=== PATIENT | female | born 1955 | race Caucasian/White ===

== ENCOUNTER → 2016-12-15 | Outpatient (CLI) | payer SELFPAY ==
[2015-01-23 22:51] VITALS: BP 156/98
[~2016-12-15] MED LIST: NS 100 ML IV 100 ML IV ONE
--- NOTE | 2016-12-18 09:55 | CT ---
HISTORY: Right upper quadrant pain Study: CT abdomen pelvis with contrast Comparison: None Technique: Axial post-contrast images with coronal and sagittal reformats. Dose reduction procedures were use with MA/kv adjusted for body size. Findings: The lung bases are clear. There is a nearly completely intra thoracic stomach present. The liver, sp marilee, adrenal glands, and pancreas are within normal limits. Cholelithiasis is present. The kidneys are unobstructed and without stones or masses. No ureteral calculi are identified. The appendix is n ormal. Mild calcific atherosclerotic change is present in a nondilated abdominal aorta. No intraperi toneal or retroperitoneal lymphadenopathy of significance is identified. There are no findings sugge stive of diverticulitis or colitis. Examination of the pelvis demonstrated no evidence for pelvic ma sses, pelvic fluid, or pelvic lymphadenopathy. No significant skeletal abnormality is identified. IMPRESSION: Cholelithiasis without evidence for cholecystitis Large hiatal hernia consisting of a nearly completely intra thoracic stomach Reported By:
== END | disposition home or self-care (01) | DRG 392 ==
LOC: RAD 08:34
PROVIDERS: ATTEND Family Medicine
DX: R10.11 Right upper quadrant pain (principal); K44.9 Diaphragmatic hernia without obstruction or gangrene; K80.80 Other cholelithiasis without obstruction
CPT/HCPCS: 74177; A4222

== ENCOUNTER → 2016-12-19 | Outpatient (CLI) | payer SELFPAY ==
[2015-01-23 22:51] VITALS: BP 156/98
== END ==
LOC: RAD 14:56
PROVIDERS: ATTEND Nurse Practitioner Family
DX: Z12.31 Encounter for screening mammogram for malignant neoplasm of breast (principal)
CPT/HCPCS: 77067

== ENCOUNTER → 2017-01-29 | Outpatient (CLI) | payer SELFPAY ==
[2015-01-23 22:51] VITALS: BP 156/98
--- NOTE | 2017-01-29 09:29 | RAD ---
Chest, two views Indication: Pityriasis rubra pilaris, preoperative evaluation for hernia repair and cholecystectomy Comparison: January 23, 2015 Findings: There is stable mild enlargement of the cardiac silhouette. A large hiatal hernia is again seen with mild compressive atelectasis of the left lower lobe. The remainder of the lungs are clear . No pleural effusion or pneumothorax is identified. The regional skeleton is intact. Impression: No acute cardiopulmonary abnormality. Stable mild cardiomegaly and large hiatal hernia. Reported By:
[2017-01-29 09:32] LABS: BASOPHILS # (AUTO) 0.1 X10^3/uL (0.0-0.1); BASOPHILS % (AUTO) 1.1 % (0.2-1.0); EOSINOPHILS # (AUTO) 0.4 x10^3/uL (0.0-0.2); EOSINOPHILS % (AUTO) 5.4 % (0.9-2.9); HEMATOCRIT 38.9 % (36.0-47.0); HEMOGLOBIN 13.7 g/dL (12.0-16.0); LYMPHOCYTES # (AUTO) 2.3 X10^3/uL (1.3-2.9); LYMPHOCYTES % (AUTO) 34.5 % (21.0-51.0); MEAN CORPUSCULAR HEMOGLOBIN 32.2 pg (27.0-34.0); MEAN CORPUSCULAR HGB CONC 35.2 g/dL (33.0-35.0); MEAN CORPUSCULAR VOLUME 91.5 fL (80.0-100.0); MEAN PLATELET VOLUME 8.2 fL (7.4-11.0); MONOCYTES # (AUTO) 0.5 x10^3/uL (0.3-0.8); MONOCYTES % (AUTO) 7.4 % (0.0-13.0); NEUTROPHILS # (AUTO) 3.5 x10^3/uL (2.2-4.8); NEUTROPHILS % (AUTO) 51.6 % (42.0-75.0); PLATELET COUNT 276 X10^3/uL (150.0-450.0); RED BLOOD COUNT 4.25 X10^6/uL (3.5-5.4); RED CELL DISTRIBUTION WIDTH 12.5 % (11.6-16.5); WHITE BLOOD COUNT 6.7 X10^3/uL (3.6-10.0)
[2017-01-29 09:38] LABS: BLOOD UREA NITROGEN 20 mg/dL (7-18); CALCIUM 9.1 mg/dL (8.5-10.1); CARBON DIOXIDE 33.8 mmol/L (21-32); CHLORIDE 105 mmol/L (98-107); CREATININE 1.08 mg/dL (0.55-1.02); GLUCOSE 99 mg/dL (65-99); SODIUM 143 mmol/L (136-145); eGFR BLACK RACES > 60 (>60); eGFR NON BLACK RACES 55 (>60)
== END ==
LOC: LAB 09:02
PROVIDERS: ATTEND Surgery
DX: K44.0 Diaphragmatic hernia with obstruction, without gangrene (principal)
CPT/HCPCS: 36415; 71020; 80048; 85025; 93005; 93010

== ENCOUNTER → 2017-04-11 | Outpatient (CLI) | payer SELFPAY ==
[2015-01-23 22:51] VITALS: BP 156/98
[2017-04-11 11:22] LABS: BASOPHILS % (AUTO) 0.6 % (0.2-1.0); EOSINOPHILS # (AUTO) 0.3 x10^3/uL (0.0-0.2); EOSINOPHILS % (AUTO) 5.9 % (0.9-2.9); HEMATOCRIT 37.5 % (36.0-47.0); HEMOGLOBIN 12.6 g/dL (12.0-16.0); LYMPHOCYTES # (AUTO) 1.9 X10^3/uL (1.3-2.9); LYMPHOCYTES % (AUTO) 32.8 % (21.0-51.0); MEAN CORPUSCULAR HGB CONC 33.7 g/dL (33.0-35.0); MEAN CORPUSCULAR VOLUME 89.1 fL (80.0-100.0); MEAN PLATELET VOLUME 8.2 fL (7.4-11.0); MONOCYTES # (AUTO) 0.4 x10^3/uL (0.3-0.8); MONOCYTES % (AUTO) 6.6 % (0.0-13.0); NEUTROPHILS # (AUTO) 3.1 x10^3/uL (2.2-4.8); NEUTROPHILS % (AUTO) 54.1 % (42.0-75.0); PLATELET COUNT 223 X10^3/uL (150.0-450.0); RED CELL DISTRIBUTION WIDTH 13.1 % (11.6-16.5); WHITE BLOOD COUNT 5.7 X10^3/uL (3.6-10.0)
[2017-04-11 11:23] LABS: BILIRUBIN,URINE NEGATIVE (NEGATIVE); BLOOD/HEMOGLOBIN,URINE NEGATIVE (NEGATIVE); GLUCOSE, URINE NEGATIVE (NEGATIVE); KETONES,URINE NEGATIVE (NEGATIVE); LEUKOCYTE ESTERASE ,URINE 1+ (NEGATIVE); NITRITES,URINE NEGATIVE (NEGATIVE); PROTEIN,URINE 1+ (NEGATIVE); UROBILINOGEN,URINE NORMAL (NORMAL)
[2017-04-11 11:34] LABS: APPEARANCE,URINE SLIGHTLY HAZY (CLEAR); BACTERIA,URINE TRACE /HPF (NEGATIVE); COLOR,URINE YELLOW (YELLOW); MUCUS,URINE FEW /HPF (NEGATIVE); RBC,URINE 0 /HPF (NEGATIVE); SQUAMOUS EPITHELIAL CELL,UR RARE /HPF (NEGATIVE)
[2017-04-11 11:41] LABS: ALANINE AMINOTRANSFERASE 19 Units/L (12-78); ALBUMIN 3.8 g/dL (3.4-5.0); ALKALINE PHOSPHATASE 94 Units/L (46-116); ASPARTATE AMINO TRANSFERASE 16 Units/L (15-37); BLOOD UREA NITROGEN 17 mg/dL (7-18); CALCIUM 8.9 mg/dL (8.5-10.1); CARBON DIOXIDE 25.8 mmol/L (21-32); CHLORIDE 108 mmol/L (98-107); CHOL/HDL RATIO 4.3 (0.0-5.0); CHOLESTEROL 229 mg/dL (0-200); CREATININE 0.99 mg/dL (0.55-1.02); HDL CHOLESTEROL 53 mg/dL (40-60); SODIUM 143 mmol/L (136-145); TOTAL PROTEIN 7.3 g/dL (6.4-8.2); TRIGLYCERIDES 156 mg/dL (0-150); TSH (3RD GENERATION) 1.983 uIU/mL (0.358-3.74); eGFR BLACK RACES > 60 (>60); eGFR NON BLACK RACES > 60 (>60)
== END ==
LOC: LAB 10:57
PROVIDERS: ATTEND Family Medicine
DX: E03.8 Other specified hypothyroidism (principal); I10 Essential (primary) hypertension; E78.2 Mixed hyperlipidemia
CPT/HCPCS: 36415; 80053; 80061; 81001; 84443; 85025

== ENCOUNTER → 2017-05-08 | Outpatient (CLI) | payer SELFPAY ==
[2015-01-23 22:51] VITALS: BP 156/98
[~2017-05-08] MED LIST changes: -NS 100 ML IV 100 ML IV ONE; +NS 250 ML IV 250 ML IV ONE
--- NOTE | 2017-05-08 15:38 | CT ---
Examination: CT of the abdomen and pelvis with contrast. Clinical History: Right upper quadrant abdominal swelling, status post cholecystectomy and hernia rep air. Technique: Multiple axial images were obtained from the lung bases down to the pubic symphysis follow ing the intravenous administration of 100 ml of Omnipaque 350. Oral contrast was also administered. D ose reduction techniques including automated exposure control (AEC) and adjustment of mA and kV were utilized. Comparison: 12/15/2016. Findings: The visualized portion of the lung bases is unremarkable. There are postsurgical changes from an interval cholecystectomy. There is a moderate-sized hiatal hernia, which contains a portion of the stomach. The hiatal hernia i s smaller when compared with the prior examination, suggestive of interval surgery. A small area of s tranding of the mesenteric fat is seen in the anterior aspect of the left upper abdomen, probably pos tsurgical in nature. Clinical correlation is recommended to exclude the possibility of an infectious process. The liver, spleen, pancreas, adrenal glands and kidneys are normal in appearance. The abdominal aorta is calcified and mildly tortuous, but is normal in caliber. There is no free air. The bowel gas pattern is non-obstructive. Scattered diverticula are seen associated with the colon. There is no CT evidence for acute diverticu litis. There is mild diffuse thickening of the wall of the ascending portion of the colon, suggestive of an infective, inflammatory or ischemic colitis. The small bowel is grossly unremarkable. The appendix is visualized and is normal in appearance. The bladder and uterus are within normal limits. No pelvic mass or fluid collection is noted. No enlarged lymph nodes, by CT criteria, are noted in the mesenteric, periaortic or deep pelvic regio ns. There is a small fat containing ventral hernia noted at the level of the umbilicus, with the anterior abdominal wall defect measuring approximately 2.1 cm in the transverse diameter. Degenerative changes are noted in the spine. No acute osseous abnormality is noted. Impression: 1. There is a moderate-sized hiatal hernia, which contains a portion of the stomach. The hiatal herni a is smaller when compared with the prior examination, suggestive of interval surgery. A small area o f stranding of the mesenteric fat is seen in the anterior aspect of the left upper abdomen, probably postsurgical in nature. Clinical correlation is recommended to exclude the possibility of an infectio us process. 2. Colonic diverticulosis without CT evidence for acute diverticulitis. 3. There is mild diffuse thickening of the wall of the ascending portion of the colon, suggestive of an infective, inflammatory or ischemic colitis. 4. Small fat containing ventral hernia at the level of the umbilicus. 5. Postsurgical changes from an interval cholecystectomy. Reported By:
== END ==
LOC: RAD 09:15
PROVIDERS: ATTEND Surgery
DX: R19.01 Right upper quadrant abdominal swelling, mass and lump (principal)
CPT/HCPCS: 74177; A4222